=== PATIENT | female | born 1980 | race Caucasian/White ===

== ENCOUNTER → 2017-12-13 | Outpatient (CLI) | payer BC | LOC: FIMAGING 08:22 | PROVIDERS: ATTEND Hospitalist | DX: O09.522 Supervision of elderly multigravida, second trimester (principal); Z3A.20 20 weeks gestation of pregnancy ==

== ENCOUNTER 2018-05-08 00:24 | Inpatient (IN) | payer BC ==
[2018-05-08] MEDS ORDERED: IBUPROFEN 600 MG TAB PO PRN (00:40)
[2018-05-08] MEDS ORDERED: EPSOM SALT 454 GM TP PRN (00:40)
[2018-05-08] MEDS ORDERED: LR 500 ML IV PRN (00:40)
[2018-05-08] MEDS ORDERED: OXYTOCIN/RINGERS LACTATE 500 ML IV SCH (00:40)
[2018-05-08] MEDS ORDERED: MISOPROSTOL 200 MCG TAB PR PRN (00:40)
[2018-05-08] MEDS ORDERED: OXYTOCIN/RINGERS LACTATE 1,000 ML IV PRN (00:40)
[2018-05-08] MEDS ORDERED: OLIVE OIL 118 ML BTL MISC PRN (00:40)
[2018-05-08] MEDS ORDERED: LR 1,000 ML IV PRN (00:40)
[2018-05-08] MEDS ORDERED: LIDOCAINE 1% 300 MG/30 ML SDV SC PRN (00:40)
[2018-05-08] MEDS ORDERED: LIDOCAINE 1% 300 MG/30 ML SDV ONE (01:12)
[2018-05-08] MEDS ORDERED: TERBUTALINE SULFATE 1 MG/ML VIAL ONE (01:13)
[2018-05-08] MEDS ORDERED: OLIVE OIL 118 ML BTL MISC ONE (01:13)
[2018-05-08] MEDS ORDERED: OXYTOCIN 10 UNIT/ML VIAL ONE (01:13)
[2018-05-08] MEDS ORDERED: AMMONIA AROMATIC 1 EACH AMP IH ONE (01:13)
[2018-05-08] MEDS ORDERED: MISOPROSTOL 200 MCG TAB ONE (01:13)
[2018-05-08 01:24] LABS: PLATELET COUNT 171 10^3/uL (150-400)
--- NOTE | 2018-05-08 02:51 | GHP ---
[f rep st] HISTORY AND PHYSICAL DATE OF ADMISSION: 05/08/2018 ADMITTING DIAGNOSIS: Intrauterine at 41 weeks gestation, in early labor. HISTORY OF PRESENT ILLNESS: The patient is a 37-year-old 3, para 2-0-0-2, with a last menstr ual period of 09/04/2017, and an EDC of 05/02/2018, set by a 14 week ultrasound. Patient has had goo d care at [facility] since registration at 14 weeks gestation. Her risk factors include advanced maternal age. She has a negative and normal level 2 ultrasound. She has a marginal cord insertion, has had good growth, most recent estimated weight was 33rd p ercentile and a history of rapid labors. She was scheduled for an induction of labor today, elective , for 41 weeks gestation. She was checked in the office and was 1 to 2 cm, 50%. She had a Helms cat heter placed for cervical ripening. In the middle of night she began having increased contractions, 4 to 5 minutes apart, and presented to labor and delivery. She denies leakage of fluid, vaginal blee ding, has had good movement, and no other symptoms. REVIEW OF SYSTEMS: Negative. PAST OBSTETRICAL HISTORY: In 2012 she had a viable male, 7 pounds 8 ounces, 40 weeks, vacuum assiste d vaginal delivery for intolerance to labor. In 2014 she had another viable male, 7 pounds 14 ounces, 39 weeks, spontaneous labor, total labor was 4 hours, and this is her 3rd . PAST GYNECOLOGICAL HISTORY: She has normal menstrual triad of menarche at age 13, interval every 28 days, length 3 to 4 days. Last menstrual period was 09/04/2017. However, her EDC was changed, based the 14-week ultrasound, and EDC is 05/02/2018. PAST MEDICAL HISTORY: Nothing significant. PAST SURGICAL HISTORY: She had a cervical laser at age 16, and wisdom teeth extractions at age 19, t hat is all. MEDICATIONS: Include vitamins and DHA. ALLERGIES: She has no has no known drug allergies. LABS: She is O positive. Antibody negative. RPR nonreactive. Rubella immune. Hepatitis negative. HIV negative. Urine drug screen was negative. Urine culture was negative. was negative. 1-hour GTT 99. GBS negative. She is varicella immune. SOCIAL HISTORY: She is . She lives with her , Nitin, and her 2 sons. 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 She denies tobacco, alcohol, or drug use. FAMILY HISTORY: Her paternal grandfather had an FL at age 60. Mother has history of depression and Parkinson's. Father had testicular cancer. OBJECTIVE: VITAL SIGNS: Today she is afebrile. Vital signs are stable. heart tones 140s, re active moderate variability, category 1. She is cherri every 3 to 4 minutes. CERVIX: Per the RN exam, she is 4 to 5, 50%, -3. Baby is cephalic. ASSESSMENT/PLAN: A 37-year-old 3, para 2-0-0-2, 41 weeks, in early labor. Patient is admitt ed for expectant labor management for now. We will check in a couple hours, and I will offer AROM or Pitocin for augmentation, if patient desires. /[id number]/MODL
[2018-05-08] MEDS ORDERED: PHENYLEPHRINE HCL 100 MCG/ML SYR ONE (03:14)
[2018-05-08] MEDS ORDERED: fentaNYL 2MCG/ML/BUP 0.1% RTU 100 ML BAG EP ONE (03:14)
--- NOTE | 2018-05-08 03:44 | PREANESOB ---
Obstetric Pre-Anesthesia Info - General Info Proposed Procedure: VARUN : 3 Para: 2 LIDA: 05/02/18 Gestational Age: 40 week(s) and 6 day(s) - Info Status: Full Term, Simpson Monitors: External FHR Pattern: Reassuring - Labor Status PIH: No Indications for Labor Analgesia: Pain Control Labor Epidural: Proposed Anesthesia Allergies/Adverse Reactions: Allergy/AdvReac Type Severity Reaction Status Date / Time No Known Allergies Allergy Verified 05/08/18 00:39 Home Medications: Medication Instructions Recorded Iron 05/08/18 Pepcid 05/08/18 05/08/18 Visit Medications: Generic Name Dose Route Start Last Admin Trade Name Freq PRN Reason Stop Dose Admin Lactated Ringer's 500 mls @ 500 mls/hr 05/08/18 00:40 Lr IV PRN PRN Maternal Hypotension Lactated Ringer's 1,000 mls @ 0 mls/hr 05/08/18 00:40 Lr IV 05/09/18 00:39 PRN PRN SEE PROTOCOL CONDITIONS Protocol Per Protocol Oxytocin/Lactated Ringer's 500 mls @ 0 mls/hr 05/08/18 00:40 Pitocin 30 Units/Lr (Premix) IV 11/04/18 00:39 CONT ROSAURA Protocol Per Protocol Oxytocin/Lactated Ringer's 1,000 mls @ 125 mls/hr 05/08/18 00:40 Pitocin 20 Units/Lr (Premix) IV PRN PRN Post bleeding Ibuprofen 600 mg 05/08/18 00:40 Motrin PO ONCE PRN post , pain Lidocaine HCl 300 mg 05/08/18 00:40 Lidocaine Hcl 1% SC 11/04/18 00:39 ONCE PRN episiotomy Magnesium Sulfate 454 gm 05/08/18 00:40 Epsom Salt TP 11/04/18 00:39 Q1H PRN perineal discomfort Misoprostol 800 - 1,000 mcg 05/08/18 00:40 Cytotec ND ONCE PRN Vaginal Atony/Bleeding Guttenberg Oil 118 ml 05/08/18 00:40 Sweet Oil MISC 11/04/18 00:39 ONCE PRN perineal massage Discontinued Medications Generic Name Dose Route Start Last Admin Trade Name Freq PRN Reason Stop Dose Admin Ammonia (Aromatic Spirit) Confirm 05/08/18 01:13 Ammonia Aromatic Administered 05/08/18 01:14 Dose 1 each IH .STK-MED ONE Fentanyl/Bupivacaine HCl Confirm 05/08/18 03:14 Fentanyl/Bupivacaine/Ns 2 Mcg/Ml 0.1% (Premix Administered 05/08/18 03:15 Dose 100 ml EP .STK-MED ONE Lidocaine HCl Confirm 05/08/18 01:12 Lidocaine Hcl 1% Administered 05/08/18 01:13 Dose 300 mg .ROUTE .STK-MED ONE Misoprostol Confirm 05/08/18 01:13 Cytotec Administered 05/08/18 01:14 Dose 1,000 mcg .ROUTE .STK-MED ONE Guttenberg Oil Confirm 05/08/18 01:13 Sweet Oil Administered 05/08/18 01:14 Dose 118 ml MISC .STK-MED ONE Oxytocin Confirm 05/08/18 01:13 Pitocin Administered 05/08/18 01:14 Dose 40 unit .ROUTE .STK-MED ONE Phenylephrine HCl Confirm 05/08/18 03:14 Neosynephrine Administered 05/08/18 03:15 Dose 1,000 mcg .ROUTE .STK-MED ONE Terbutaline Sulfate Confirm 05/08/18 01:13 Brethine Administered 05/08/18 01:14 Dose 1 mg .ROUTE .STK-MED ONE - Anesthesia History Response to Local Anesthetics: Normal Anesthesia & Operative History: No Prior Problems - Vital Signs Height/Weight (Nursing): Height 165.1 cm Weight 81.647 kg - Focused Exam Neck exam: FROM Mallampati Score: Class 3 Mouth exam: normal dental/mouth exam Pulmonary: no respiratory distress, no rales or rhonchi, clear to auscultation Cardiovascular: regular rate and rhythym, no murmur, rub, or gallop Labs: 05/08/18 00:40 Patient ABO/Rh O POSITIVE 05/08/18 00:40
[2018-05-08] MEDS ORDERED: PHENYLEPHRINE HCL 100 MCG/ML SYR IVP PRN (03:46)
[2018-05-08] MEDS ORDERED: fentaNYL 2MCG/ML/BUP 0.1% RTU 100 ML EP SCH (04:00)
[2018-05-08] MEDS ORDERED: LR 500 ML IV SCH (04:00)
[2018-05-08] MEDS ORDERED: SIMETHICONE 80 MG TAB CHEW PO PRN (09:07)
[2018-05-08] MEDS ORDERED: HYDROCORTISONE 0.5% CREAM TP PRN (09:07)
--- NOTE | 2018-05-08 09:24 | OBDEL ---
Info Type: Vaginal Presentation at Delivery: Vertex L&D Analgesia/Anesthesia Type: Epidural GBS+: No Indications for Delivery: Spontaneous Labor (after placement of Helms catheter intrauterine in office yesterday) Vaginal Delivery - Delivery Provider Delivery Physician/CNM: Shey Cat - Labor and Delivery Onset of Contractions Date: 05/07/18 Onset of Contractions Time: 21:00 Onset of Contractions Type: Spontaneous Rupture of Membranes Date: 05/08/18 Rupture of Membranes Time: 02:51 Rupture of Membranes Type: Spontaneous Amniotic Fluid Color: Clear Dilation Complete Date: 05/08/18 Dilation Complete Time: 08:34 Placenta Delivery Date: 05/08/18 Placenta Delivery Time: 08:59 Total Hours of Labor: 11 Laceration: 2nd Degree Repair: 3-0, Vicryl Vaginal Sponge Count Correct: Yes Vaginal Needle Count Correct: Yes Vaginal Sweep Performed: Yes EBL: 300 Delivery Events: None Delivery Comment: I received report and assumed care from Dr. Walls at 0700. Pt was comfortable with epidural at that time, was 7cm dilated shortly after that and progressed to complete without other intervention, at 0834. She pushed for <10 minutes. [place] of vertex, ANJU, over intact perineum, bulb suctioned on perineum. No nuchal cord noted. No dystocia, with easy delivery of body, right to maternal abdomen. 1 min delay prior to cord clamping and cutting. 2nd degree laceration identified and repaired with 3.0 Vicryl. IV pitocin administered and placenta delivered spontaneously at 0859. Fundal massage performed with removal of clots from lower uterine segment. Male infant, Apgars 8 at 1 and 9 at 5. Baby left in room with mother in stable condition. - Medications Labor Augmentation/Induction Methods Used: Helms Bulb [place] Data LIDA: 05/02/18 Gestational Age: 40 week(s) and 6 day(s) Simpson Delivery Date: 05/08/18 Delivery Time: 08:48 Sex of Infant: Male Score (1 Min): 8 Score (5 Min): 9 ICD10 Worksheet Patient Problems: Problems Problem Status Onset Vaginal delivery Acute Vaginal delivery Acute - ICD10 Problem Qualifiers (1) Vaginal delivery (2) Vaginal delivery
--- NOTE | 2018-05-08 16:40 | POSTANESTH ---
Post Anesthetic Evaluation Cardiovascular Status: Normal, Stable Respiratory Status: Normal, Stable Level of Consciousness/Mental Status: Can Participate in Eval, Alert and Oriented Pain Control: Adequate, Prn Tx Ordered Nausea/Vomiting Control: Adequate, Prn Tx Ordered (Placenta Delivery Time = Epidural End Time 05/08/18 @08:59)
[2018-05-08] MEDS: ACETAMINOPHEN 500 MG TAB PO PRN (17:30)
[2018-05-08] MEDS: IBUPROFEN 200 MG TAB PO PRN (17:30)
[2018-05-09] MEDS: ACETAMINOPHEN 500 MG TAB PO PRN ×3 (01:16→17:45)
[2018-05-09] MEDS: IBUPROFEN 200 MG TAB PO PRN ×3 (01:16→17:40)
--- NOTE | 2018-05-09 10:36 | OBPP ---
Progress Note Assessment/Plan: Assessment: PPD 1 s/p , P3 Plan: desires d/c 05/09/18 10:34 Subjective/ Course: 05/09/18 10:35 Pt doing well. feels BF going well. bld is light. baby has good latch. cramps not too bad. urinating fine. amb well. wants d/c Objective: 05/09/18 06:00 Patient ABO/Rh O POSITIVE 05/08/18 00:40 Temp Pulse Resp BP Pulse Ox 36.9 C 86 14 95/65 L 96 05/08/18 20:00 05/08/18 20:00 05/08/18 20:00 05/08/18 20:00 05/08/18 20:00 Uterine Position/Fundal Height: Umbilicus -2 Uterine Tone: Firm Physical Exam - Physical Exam Abdomen: non-tender, soft, other (FF at umb -2) Extremities: non-tender, pedal edema (none) Skin: normal color, warm/dry Neuro/Psych: alert, normal mood/affect
--- NOTE | 2018-05-09 10:37 | OBGCSDC ---
General Delivery Information - General Info : 3 Para: 3 Abortions: 0 Type: Vaginal L&D Analgesia/Anesthesia Type: Epidural Admission Date: 05/08/18 Labs: Patient ABO/Rh O POSITIVE 05/08/18 00:40 Hct 39.3 % (38.0-47.0) 05/09/18 06:00 - Hospital Course : 05/09/18 10:35 Pt doing well. feels BF going well. bld is light. baby has good latch. cramps not too bad. urinating fine. amb well. wants d/c Vaginal - Delivery Provider Delivery Physician/CNM: Shey Cat - Diagnosis Labor: Spontaneous Rupture of Membranes Type: Spontaneous Amniotic Fluid Color: Clear Laceration: 2nd Degree Repair: 3-0, Vicryl Delivery Events: None - Delivery EBL: 300 [place] Data LIDA: 05/02/18 Gestational Age: 41 week(s) and 0 day(s) Simpson Delivery Date: 05/08/18 Delivery Time: 08:48 Sex of : Male [place] Weight (gm): 3661 kg Score (1 Min): 8 Score (5 Min): 9 Discharge Information - Discharge Information Condition: Good Instruction/Follow Up: See Instruction Sheet, Two Weeks (with therapist), Six Weeks (with MD)
[2018-05-09 14:31] VITALS: BP 119/75
== END 2018-05-09 17:45 | disposition home or self-care (01) | DRG 807 ==
LOC: FLD 00:24 → FOB 12:58
PROVIDERS: ADMIT Obstetrics & Gynecology; ATTEND Obstetrics & Gynecology
DX: O70.1 Second degree perineal laceration during delivery (principal); Z37.0 Single live birth; Z3A.41 41 weeks gestation of pregnancy
CPT/HCPCS: J2370; J2590; J3105